=== PATIENT | male | born 1935 | race Caucasian/White ===

== ENCOUNTER → 2017-04-04 | Outpatient (CLI) | payer OTHER ==
[~2017-04-04] MED LIST: AMLODIPINE BESYL5 MG PO; ASPIRIN81 M2 PO; BUMEX2 MG PO; CARVEDILOL6.25 MG PO; CATAPRES0.1 MG PO; FERRO-TIME325 MG PO; HUMALOG MIX 75/10 ML SUBQ; HUMULIN 70/30 PE3 ML SUBQ; HYDRALAZINE HCL50 MG PO; K-DUR10 MEQ PO; LEVAQUIN250 MG PO; LEVOTHROID50 MCG PO; LIPITOR20 MG PO; METFORMIN; PREDNISONE PO; SYMBICORT INH; [UNRECOGNIZED DRUG - REMARK]
--- NOTE | ~2017-04-04 | US77 ---
[facility] A Service of [facility] & [facility] RADIOLOGY TEXT RESULTS PATIENT: ERICA HAMPTON LOCATION: CGUS : 37 UNIT #: [id number] AGE: [address]: Gi Herron MD SEX: M ORDER DR: [id number] [facility] [address]. [place], [place] [address] [id number] O MR#: [id number] Acc #: [id number] NAME: ERICA HAMPTON : 1935 SEX: M STUDY DATE/TIME: 04/04/2017 12:28 UNIT: CGUS ROOM: STUDY DESCRIPTION: US Kidney Bilateral Complete Attending Physician: Cece Herron M.D. Referring Physician: Cece Herron M.D. Ordering Physician: Cece Herron M.D. Primary Care Physician: Yudy Tolentino M.D. MEDICAL IMAGING REPORT This report is preliminary unless electronic signature is present EXAM Renal ultrasound, 04/04/2017. HISTORY Chronic kidney disease stage 2. FINDINGS The right kidney measures 10.8 cm, while the left kidney measures 11.7 cm in longitudinal dimensions. There is no evidence of hydronephrosis or nephrolithiasis. No cystic or solid mass lesions were seen on either kidney. There is normal renal cortical echogenicity. Images of the bladder are normal. IMPRESSION 1. Negative renal ultrasound. 2. Images of the bladder are normal. Dictated by... Lucas Hampton M.D. THIS IS AN ELECTRONICALLY VERIFIED REPORT Lucas Hampton M.D. at 04/05/2017 8:13 AM MOI/baylee TD: 04/04/2017 16:31 JOB #: [id number] MEDICAL IMAGING REPORT Page 1 of 1 COPY
== END | disposition home or self-care (01) ==
LOC: CGUS 04-01 12:45
DX: N18.2 Chronic kidney disease, stage 2 (mild) (principal)
CPT/HCPCS: 76770

== ENCOUNTER → 2017-07-01 | Outpatient (CLI) | payer MEDICARE ==
--- NOTE | ~2017-07-01 | US136 ---
[facility] A Service of [facility] & [facility] RADIOLOGY TEXT RESULTS PATIENT: ERICA HAMPTON LOCATION: CNIV : 37 UNIT #: [id number] AGE: [address]: Arjun Jacobson MD SEX: M ORDER DR: [id number] [facility] [address] [place], [place] [address] [id number] O MR#: [id number] Acc #: [id number] NAME: ERICA HAMPTON : 1935 SEX: M STUDY DATE/TIME: 07/01/2017 13:48 UNIT: CNIV ROOM: STUDY DESCRIPTION: US U/L Ext Art Study Ltd Bil Attending Physician: Arjun Jacobson M.D. Referring Physician: Arjun Jacobson M.D. Ordering Physician: Arjun Jacobson M.D. Primary Care Physician: Yudy Tolentino M.D. MEDICAL IMAGING REPORT This report is preliminary unless electronic signature is present EXAM Ankle-brachial indices HISTORY Peripheral vascular disease FINDINGS Waveforms are biphasic at the ankle levels bilaterally. Right brachial pressure is 135, left brachial is 117 mmHg. On the right side, dorsalis pedis is 130, posterior tibial 97, great toe 157 for a right ankle-brachial index of 0.96. On the left side, posterior tibial pressure is 108, dorsalis pedis is 195 and great toe 147 for a left MATTHIAS of 0.8. IMPRESSION Normal perfusion is seen in the right lower extremity with ankle-brachial index of 0.96. Mild peripheral vascular disease is seen in the left lower extremity with ankle-brachial index of 0.80. Dictated by... Thad Israel TD: 07/03/2017 09:01 JOB #: [id number] MEDICAL IMAGING REPORT Page 1 of 1
== END | disposition home or self-care (01) ==
LOC: CNIV 13:40
DX: I73.9 Peripheral vascular disease, unspecified (principal)
CPT/HCPCS: 93922